=== PATIENT | female | born 1970 | race Caucasian/White ===

== ENCOUNTER 2017-12-23 10:18 | Emergency (ER) | payer OTHER ==
[~2017-12-23] VITALS: Ht 162.6 cm; Wt 66.2 kg
[2017-12-23] MEDS ORDERED: IV NS 0.9% 500 ML BAG IV ONE (10:30)
[2017-12-23] MEDS ORDERED: HYDROMORPHONE INJ 2 MG/ML DISP.SYRIN IV ONE (10:30)
[2017-12-23] MEDS ORDERED: ONDANSETRON HCL/PF 4 MG/2 ML VIAL IVP ONE (10:30)
[2017-12-23] MEDS ORDERED: ONDANSETRON HCL/PF 4 MG/2 ML VIAL ONE (10:37)
[2017-12-23] MEDS ORDERED: HYDROMORPHONE 1 MG/1 ML DISP.SYRIN ONE (10:38)
--- NOTE | 2017-12-23 10:40 | NUR ---
BIBRA 878.LLQ ABDOMINAL PAIN W/ N/V/ DIARRHEA THAT STARTED 2 HOURS AGO. PATIENT C/O 10/10 PAIN IN ABDOMEN. MD AT BEDSIDE
[2017-12-23 10:46] LABS: BASOPHILS % (AUTO) 0.5 % (0.0-2.0); EOSINOPHILS % (AUTO) 0.7 % (0.0-6.0); HEMATOCRIT 40 % (33-45); LYMPHOCYTES # (AUTO) 1.8 /CMM (0.8-4.8); LYMPHOCYTES % (AUTO) 20.3 % (20.0-44.0); MEAN CORPUSCULAR HGB CONC 35 g/dl (31.0-36.0); MEAN CORPUSCULAR VOLUME 90 fL (82-100); MONOCYTES # (AUTO) 0.4 /CMM (0.1-1.30); MONOCYTES % (AUTO) 4.9 % (2.0-12.0); NEUTROPHILS # (AUTO) 6.4 /CMM (1.8-8.9); NEUTROPHILS % (AUTO) 73.6 % (43.0-81.0); PLATELET COUNT (AUTO) 263 /CMM (150-450); RDW COEFFICIENT OF VARIATION 11.8 (11.5-15.0); WHITE BLOOD COUNT (AUTO) 8.8 K/uL (4.3-11.0)
[2017-12-23 10:56] LABS: CREATININE 0.9 mg/dL (0.6-1.3); POTASSIUM 3.6 mmol/L (3.5-5.1)
--- NOTE | 2017-12-23 10:57 | NUR ---
US TECH AT BEDSIDE. PATIENT STATES SHE IS UNABLE TO GIVE URINE SHE IS DEHYDRATED. WILL ATTEMPT AFTER US
[2017-12-23 11:02] LABS: BILIRUBIN,TOTAL 0.3 mg/dL (0.2-1.0); TOTAL PROTEIN, SERUM 7.6 g/dL (6.4-8.2)
--- NOTE | 2017-12-23 11:33 | NUR ---
PATIENT PROVIDED URINE SAMPLE. SENT TO LAB
--- NOTE | 2017-12-23 11:34 | NUR ---
PATIENT REPORTS PAIN/NAUSEA STILL PRESENT BUT GREATELY IMPROVED
[2017-12-23 11:40] LABS: BILIRUBIN,URINE SMALL (NEGATIVE); BLOOD, URINE Large Ery/uL (NEGATIVE); KETONES,URINE 15 (NEGATIVE); LEUKOCYTE ESTERASE ,URINE Trace (NEGATIVE); NITRITE, URINE Negative (NEGATIVE); PROTEIN,URINE 100 mg/dl (NEGATIVE); UGLUCOSE Negative (NEGATIVE); UROBILINOGEN,URINE 0.2 EU/dL (0.2)
[2017-12-23 11:44] LABS: APPEARANCE,URINE Turbid (CLEAR); COLOR,URINE Dark Yellow (YELLOW)
[2017-12-23 11:51] LABS: BACTERIA,URINE None seen /HPF (None Seen); RBC,URINE TOO NUMEROUS TO COUN /HPF (0-2); SQUAMOUS EPITHELIAL CELL,UR Few /HPF (None Seen)
--- NOTE | 2017-12-23 12:18 | NUR ---
PT. VERBALIZED UNDERSTANDING OF AFTERCARE INSTRUCTIONS.Patient discharged to home in stable condition. Written and verbal after care instructions given. Patient verbalizes understanding of instruction.
--- NOTE | 2017-12-23 12:18 | NUR ---
IV removed. Catheter intact and site benign. Pressure and 4x4 applied to site. No bleeding noted.
[2017-12-23 12:19] VITALS: BP 120/57
== END 2017-12-23 12:23 | disposition home or self-care (01) ==
LOC: ER 10:20
DX: N13.2 Hydronephrosis with renal and ureteral calculous obstruction (principal); F32.9 Major depressive disorder, single episode, unspecified; F41.9 Anxiety disorder, unspecified; R11.2 Nausea with vomiting, unspecified; Z88.5 Allergy status to narcotic agent
CPT/HCPCS: 36415; 76700-TC; 80048-TC; 80076-TC; 81000-TC; 83690-TC; 84703-TC; 85025-TC; A4606; J1170; J2405; J7040; Z7610

== ENCOUNTER 2018-04-20 07:04 | Emergency (ER) | payer OTHER ==
[~2018-04-20] VITALS: Ht 162.6 cm; Wt 63.5 kg
[2018-04-20 07:30] LABS: APPEARANCE,URINE CLEAR (CLEAR); BILIRUBIN,URINE NEGATIVE (NEGATIVE); BLOOD, URINE NEGATIVE Ery/uL (NEGATIVE); COLOR,URINE YELLOW (YELLOW); KETONES,URINE NEGATIVE (NEGATIVE); LEUKOCYTE ESTERASE ,URINE NEGATIVE (NEGATIVE); NITRITE, URINE NEGATIVE (NEGATIVE); PROTEIN,URINE 1+ mg/dl (NEGATIVE); UGLUCOSE NEGATIVE (NEGATIVE); UROBILINOGEN,URINE 0.2 EU/dL (0.2)
[2018-04-20] MEDS ORDERED: IV NS 0.9% 1,000 ML BAG IV ONE (07:30)
[2018-04-20] MEDS ORDERED: ONDANSETRON HCL/PF 4 MG/2 ML VIAL IVP ONE (07:30)
[2018-04-20] MEDS ORDERED: HYDROMORPHONE 1 MG/1 ML DISP.SYRIN IV ONE (07:30)
[2018-04-20] MEDS ORDERED: ONDANSETRON HCL/PF 4 MG/2 ML VIAL ONE (07:41)
[2018-04-20] MEDS ORDERED: HYDROMORPHONE INJ 0.5 MG/0.5 ML SYRINGE ONE (07:41)
[2018-04-20 07:44] LABS: BASOPHILS % (AUTO) 0.3 % (0.0-2.0); EOSINOPHILS % (AUTO) 0.1 % (0.0-6.0); HEMATOCRIT 41 % (33-45); HEMOGLOBIN 14.1 g/dL (11.5-14.8); LYMPHOCYTES # (AUTO) 1.1 /CMM (0.8-4.8); LYMPHOCYTES % (AUTO) 10.2 % (20.0-44.0); MEAN CORPUSCULAR HGB CONC 35 g/dl (31.0-36.0); MEAN CORPUSCULAR VOLUME 91 fL (82-100); MONOCYTES # (AUTO) 0.2 /CMM (0.1-1.30); MONOCYTES % (AUTO) 2.3 % (2.0-12.0); NEUTROPHILS % (AUTO) 87.1 % (43.0-81.0); PLATELET COUNT (AUTO) 177 /CMM (150-450); RED BLOOD CELL COUNT(AUTO) 4.47 MIL/uL (4.0-5.2); WHITE BLOOD COUNT (AUTO) 10.3 K/uL (4.3-11.0)
[2018-04-20 07:55] LABS: CARBON DIOXIDE 23 mmol/L (21-32); CHLORIDE 101 mmol/L (98-107); CREATININE 0.8 mg/dL (0.6-1.3); GLUCOSE 147 mg/dL (74-106); POTASSIUM 3.4 mmol/L (3.5-5.1); SODIUM SERUM 135 mmol/L (136-145); UREA NITROGEN, BLOOD 15 mg/dL (7-18)
[2018-04-20 08:00] LABS: ALANINE AMINOTRANSFERASE 13 U/L (12-78); ALBUMIN 4.2 g/dL (3.4-5.0); ALKALINE PHOSPHATASE 44 U/L (46-116); ASPARTATE AMINOTRANSFERASE 13 U/L (15-37); BILIRUBIN,DIRECT 0.1 mg/dL (0.0-0.2); BILIRUBIN,TOTAL 0.4 mg/dL (0.2-1.0); LIPASE 127 U/L (73-393); TOTAL PROTEIN, SERUM 7.7 g/dL (6.4-8.2)
--- NOTE | 2018-04-20 08:45 | NUR ---
PT BIB SELF C/O RIGHT FLANK PAIN X 1 DAY WITH N/V. CONNECTED TO THE MONITOR, AND PULSE OX, KEPT COMFORTABLE, WILL CONTINUE TO MONITOR ACCORDINGLY. ON ROOM AIR, BREATHING EVENLY AND UNLABORED.
[2018-04-20 09:12] VITALS: BP 118/95
--- NOTE | 2018-04-20 09:13 | NUR ---
Patient discharged to home in stable condition. Written and verbal after care instructions given. Patient verbalizes understanding of instruction.IV removed. Catheter intact and site benign. Pressure and 4x4 applied to site. No bleeding noted.
== END 2018-04-20 09:13 | disposition home or self-care (01) ==
LOC: ER 07:11
DX: N13.2 Hydronephrosis with renal and ureteral calculous obstruction (principal); F32.9 Major depressive disorder, single episode, unspecified; F41.9 Anxiety disorder, unspecified; Z88.6 Allergy status to analgesic agent
CPT/HCPCS: 36415; 74176; 80048; 80076; 81001; 83690; 84484; 84703; 85025; 96374; 96375; 99284; A4606; J2405; J7030; 81000-TC